=== PATIENT | male | born 1980 | race Caucasian/White ===

== ENCOUNTER 2020-01-13 12:40 | Emergency (ER) | payer MEDICAID ==
[~2020-01-13] VITALS: Ht 162.6 cm; Wt 71.2 kg
[2020-01-13 12:40] VITALS: BP 152/98
--- NOTE | 2020-01-13 12:40 | NUR ---
PT INITIAL SCREENING PERFORMED BY [employer]UR[facility]. PATIENT PROVIDED WITH A MASK AND PLACED IN TENT. COVID-19 SCREENING PERFORMED BY MYSELF. PT AMBULATED THROUGH AMBULANCE ENTRANCE PLACED IN BED 3.
--- NOTE | 2020-01-13 12:46 | NUR ---
PATIENT AMBULATED TO BED 3
--- NOTE | 2020-01-13 13:00 | NUR ---
39 Y/O M C/C NASAL CONGESTION/COUGH X 1 DAY. PER PT NO OTC RX TAKEN. PER PT HAS BEEN COMPLIANT BY STAYING HOME ; HAS DONE ONLY ESSENTIAL TRAVELING ; HAS HAD NO VISITORS AT HOME. PT NKA. NO HX. NO RX. NO N/V/D. SIDE RAIL X1. NO RESPIRATORY DISTRESS NOTED.
--- NOTE | 2020-01-13 13:00 | NUR ---
COVID-19 PRECAUTIONS TAKEN PER HOSPITAL POLICY
[2020-01-13 13:02] VITALS: BP 152/98
== END 2020-01-13 13:02 | disposition home or self-care (01) ==
LOC: EEVIPCON 12:40 → MED 12:40
DX: J06.9 Acute upper respiratory infection, unspecified (principal); J02.9 Acute pharyngitis, unspecified
CPT/HCPCS: 99283

== ENCOUNTER 2020-07-19 01:45 | Emergency (ER) | payer MEDICAID ==
[~2020-07-19] VITALS: Ht 165.1 cm; Wt 77.1 kg
[2020-07-19 01:57] VITALS: BP 151/95
--- NOTE | 2020-07-19 02:02 | NUR ---
PT AMBULATED TO BED #8
--- NOTE | 2020-07-19 02:20 | NUR ---
40 YO M BIB SELF FOR C/C OF 7/10 BILATERAL EAR/HEAD PAIN AND NASAL CONGESTION X2 DAYS. PT DENIES FEVER, COUGH, SOB, AND TRAVEL. LUNG SOUNDS CLEAR THROUGHOUT. S1S2 HEARD. PT TOOK ACETAMINOPHEN PRIOR TO ARRIVAL. BED LOCKED AND IN LOWEST POSITION. SIDE RAILS X1. MED HX: DENIES DENIES RX NKA
--- NOTE | 2020-07-19 02:25 | NUR ---
PLACED PT ON PULSE OX AND HAD HIM WALK IN PLACE PER REQUEST OF JOSE ANTONIO TAMAYO. PT REMAINED AT 98% O2 SATURATION.
--- NOTE | 2020-07-19 02:26 | NUR ---
JORGE SWAB COLLECTED AND SENT TO LAB
[2020-07-19 03:12] VITALS: BP 151/95
--- NOTE | 2020-07-19 03:12 | NUR ---
Patient discharged with v/s stable. Written and verbal after care instructions given and explained. Patient alert, oriented and verbalized understanding of instructions. Ambulatory with steady gait. All questions addressed prior to discharge. ID band removed. Patient advised to follow up with PMD. Rx of AUGMENTIN, RHINOCORT AQUA NASAL SPRAY given. Patient educated on indication of medication including possible reaction and side effects. Opportunity to ask questions provided and answered.
== END 2020-07-19 03:12 | disposition home or self-care (01) ==
LOC: MED 01:45
DX: B34.9 Viral infection, unspecified (principal); J30.9 Allergic rhinitis, unspecified; Z20.828 Contact with and (suspected) exposure to other viral communicable diseases
CPT/HCPCS: 99283

== ENCOUNTER 2021-08-24 02:02 | Emergency (ER) | payer MEDICAID ==
[~2021-08-24] VITALS: Ht 162.6 cm; Wt 76.2 kg
[2021-08-24 02:10] VITALS: BP 178/120
--- NOTE | 2021-08-24 02:16 | NUR ---
patient to bed 12 with urine cup for collection
--- NOTE | 2021-08-24 02:30 | NUR ---
Received pt in bed 12 with c/o abd pain that started today. 07/21 pain. denies taking any pain medication. +n/v. abd pain centered in the right lower abdominal area. pmh: denies nka
[2021-08-24] MEDS ORDERED: ONDANSETRON 4 MG/2 ML VIAL IVP ONE (02:40)
[2021-08-24] MEDS ORDERED: KETOROLAC 30 MG/ML VIAL IVP ONE (02:40)
[2021-08-24] MEDS ORDERED: NACL 0.9% 1,000 ML IV SCH (02:40)
--- NOTE | 2021-08-24 03:00 | NUR ---
TO CT VIA W/C
[2021-08-24 03:06] LABS: BASOPHILS % (AUTO) 0.5 % (0.0-2.0); EOSINOPHILS # (AUTO) 0.3 K/uL (0-0.4); EOSINOPHILS % (AUTO) 4.4 % (0.0-4.0); HEMATOCRIT 44.4 % (36-52); HEMOGLOBIN 15.2 g/dL (12.0-18.0); LYMPHOCYTES # (AUTO) 2.1 K/uL (2.0-11.5); LYMPHOCYTES % (AUTO) 27.6 % (20.5-51.1); MEAN CORPUSCULAR HEMOGLOBIN 30 pg (27-31); MEAN CORPUSCULAR HGB CONC 34 g/dL (33-37); MEAN CORPUSCULAR VOLUME 87.6 fL (80-94); MONOCYTES # (AUTO) 0.5 K/uL (0.8-1.0); MONOCYTES % (AUTO) 6.7 % (1.7-9.3); NEUTROPHILS # (AUTO) 4.7 K/uL (1.8-7.7); NEUTROPHILS % (AUTO) 60.8 % (42.2-75.2); PLATELET COUNT (AUTO) 171 K/uL (140-450); RED BLOOD CELL COUNT(AUTO) 5.06 MIL/uL (4.20-6.10); RED CELL DISTRIBUTION WIDTH 13.4 % (11.6-13.7); WHITE BLOOD COUNT (AUTO) 7.7 K/uL (4.8-10.8)
--- NOTE | 2021-08-24 03:10 | NUR ---
RETURNED FROM CT
[2021-08-24 03:12] LABS: ANION GAP 11.1 (8-16); CARBON DIOXIDE 29.2 mmol/L (21-32); CREATININE 0.9 mg/dL (0.6-1.3); POTASSIUM 3.3 mmol/L (3.5-5.1); TOTAL BILIRUBIN 0.5 mg/dL (0.0-1.0)
[2021-08-24 03:28] LABS: APPEARANCE,URINE CLEAR (CLEAR); BILIRUBIN,URINE NEGATIVE (NEGATIVE); BLOOD, URINE 3+ (NEGATIVE); COLOR,URINE YELLOW (YELLOW); LEUKOCYTE ESTERASE ,URINE NEGATIVE (NEGATIVE); NITRITE, URINE NEGATIVE (NEGATIVE); UGLUCOSE NEGATIVE (NEGATIVE)
[2021-08-24 03:40] LABS: RBC,URINE >100 /HPF (0-5); WBC,URINE 0-5 /HPF (0-5)
--- NOTE | 2021-08-24 03:45 | NUR ---
RESTING COMFORTABLY. DENIES PAIN AT THIS TIME
[2021-08-24] MEDS ORDERED: ONDA-188 SL (06:23)
[2021-08-24] MEDS ORDERED: KETO10TA2 PO (06:23)
[2021-08-24] MEDS ORDERED: POTASSIUM CHLORIDE 10 MEQ TABER PO ONE (06:25)
[2021-08-24 06:30] VITALS: BP 134/95
== END 2021-08-24 06:30 | disposition home or self-care (01) ==
LOC: MED 02:02
DX: N20.1 Calculus of ureter (principal); E87.6 Hypokalemia; R11.2 Nausea with vomiting, unspecified
CPT/HCPCS: 36415; 74176; 80053; 81001; 83690; 85025; 96361; 96374; 96375; 99284; J1885; J2405; J7030

== ENCOUNTER 2023-07-28 18:04 | Emergency (ER) | payer MEDICAID ==
[~2023-07-28] VITALS: Ht 162.6 cm; Wt 74.4 kg
[~2023-07-28 18:04] MED LIST: KETO10TA2 PO; ONDA-188 SL
[2023-07-28 18:16] VITALS: BP 148/90; PULSE 91; RESP 18; TEMP 97.7; O2SAT 99
[2023-07-28] MEDS ORDERED: LIDOCAINE MPF 1% 10 MG/ML VIAL INJ ONE (19:30)
[2023-07-28 20:00] VITALS: O2SAT 99
== END 2023-07-28 21:45 | disposition home or self-care (01) ==
LOC: MED 18:04
DX: S51.012A Laceration without foreign body of left elbow, initial encounter (principal); X58.XXXA Exposure to other specified factors, initial encounter; Y93.89 Activity, other specified; Y92.89 Other specified places as the place of occurrence of the external cause; Y99.8 Other external cause status
CPT/HCPCS: 12001; 73080; 90471; 90715; 99283; J2001; Q0092

== ENCOUNTER 2024-05-29 07:58 | Inpatient (IN) | payer MEDICAID, OTHER ==
[~2024-05-29] VITALS: Ht 163.2 cm; Wt 76.2 kg
[2024-05-29 08:08] VITALS: BP 155/115; PULSE 72; RESP 16; TEMP 97.4; O2SAT 98
[2024-05-29] MEDS ORDERED: GLUCAGON 1 MG VIAL ONE (10:26)
[2024-05-29] MEDS ORDERED: FAMOTIDINE 20 MG/2 ML VIAL ONE (10:27)
[2024-05-29] MEDS: ONDANSETRON 4 MG/2 ML VIAL IVP ONE (10:32)
[2024-05-29] MEDS: FAMOTIDINE 20 MG/2 ML VIAL IVP ONE (10:32)
[2024-05-29] MEDS: GLUCAGON 1 MG VIAL IVP ONE (10:32)
[2024-05-29] MEDS: ALUMINUM HYD/MAG/SIMETHICONE 30 ML UDC PO ONE (10:36)
[2024-05-29 10:49] LABS: BASOPHILS % (AUTO) 0.6 % (0.0-2.0); EOSINOPHILS # (AUTO) 0.4 K/uL (0-0.4); EOSINOPHILS % (AUTO) 5.5 % (0.0-4.0); HEMATOCRIT 47.5 % (36-52); HEMOGLOBIN 16.6 g/dL (12.0-18.0); LYMPHOCYTES # (AUTO) 1.5 K/uL (2.0-11.5); LYMPHOCYTES % (AUTO) 22.3 % (20.5-51.1); MEAN CORPUSCULAR HEMOGLOBIN 31 pg (27-31); MEAN CORPUSCULAR HGB CONC 35 g/dL (33-37); MEAN CORPUSCULAR VOLUME 87.6 fL (80-94); MONOCYTES # (AUTO) 0.4 K/uL (0.8-1.0); MONOCYTES % (AUTO) 6.2 % (1.7-9.3); NEUTROPHILS # (AUTO) 4.5 K/uL (1.8-7.7); NEUTROPHILS % (AUTO) 65.4 % (42.2-75.2); PLATELET COUNT (AUTO) 158 K/uL (140-450); RED BLOOD CELL COUNT(AUTO) 5.42 MIL/uL (4.20-6.10); RED CELL DISTRIBUTION WIDTH 13.5 % (11.6-13.7); WHITE BLOOD COUNT (AUTO) 6.9 K/uL (4.8-10.8)
[2024-05-29 11:04] LABS: ALBUMIN 4.3 g/dL (3.4-5.0); ANION GAP 12.8 (8-16); CALCIUM 9.1 mg/dL (8.5-10.1); CREATININE 0.9 mg/dL (0.6-1.3); POTASSIUM 3.8 mmol/L (3.5-5.1); TOTAL BILIRUBIN 0.5 mg/dL (0.0-1.0); TOTAL PROTEIN, SERUM 8.7 g/dL (6.4-8.2)
[2024-05-29] MEDS ORDERED: LORazepam 1 MG TAB PO PRN (15:35)
[2024-05-29] MEDS ORDERED: ONDANSETRON 4 MG/2 ML VIAL IVP PRN (15:35)
[2024-05-29] MEDS ORDERED: ZOLPIDEM 5 MG TAB PO PRN (15:35)
[2024-05-29] MEDS ORDERED: ACETAMINOPHEN 325 MG TAB PO PRN (15:35)
[2024-05-29] MEDS ORDERED: HYDROcodone/APAP 5/325 MG 1 TAB TAB PO PRN (15:35)
[2024-05-29] MEDS: DEXT 5% / NACL 0.45% 1,000 ML IV SCH (15:48)
[2024-05-29] MEDS ORDERED: fentaNYL citrate 0.05 MG/ML VIAL ONE (16:15)
[2024-05-29] MEDS ORDERED: diphenhydrAMINE 50 MG/ML VIAL ONE (16:15)
[2024-05-29] MEDS ORDERED: MIDAZOLAM 5 MG/5 ML VIAL ONE (16:15)
[2024-05-29 16:31] VITALS: O2SAT 99
[2024-05-29] MEDS: MIDAZOLAM 5 MG/5 ML VIAL IV ONE (16:32)
[2024-05-29] MEDS: fentaNYL citrate 0.05 MG/ML VIAL IVP ONE (16:33)
[2024-05-29] MEDS ORDERED: OMEP-277 PO (17:10)
[2024-05-29 17:34] VITALS: BP 126/93; PULSE 72; RESP 18; TEMP 97.1
[2024-05-30] MEDS ORDERED: DOCUSATE SODIUM 100 MG GELCAP PO SCH (09:00)
== END 2024-05-29 18:22 | disposition home or self-care (01) | DRG 254 ==
LOC: MED 07:58 → MMU 15:32 → MTU 15:54
PROVIDERS: ADMIT Hospitalist; ATTEND Hospitalist
PROC: 0DB68ZX Excision of Stomach, Via Natural or Artificial Opening Endoscopic, Diagnostic (ICD-10-PCS; 2024-05-29)
PROC: 0DB18ZX Excision of Upper Esophagus, Via Natural or Artificial Opening Endoscopic, Diagnostic (ICD-10-PCS; 2024-05-29)
PROC: 0DB28ZX Excision of Middle Esophagus, Via Natural or Artificial Opening Endoscopic, Diagnostic (ICD-10-PCS; 2024-05-29)
PROC: 0DB48ZX Excision of Esophagogastric Junction, Via Natural or Artificial Opening Endoscopic, Diagnostic (ICD-10-PCS; principal; 2024-05-29 15:15)
DX: T18.128A Food in esophagus causing other injury, initial encounter (principal); I10 Essential (primary) hypertension; K20.0 Eosinophilic esophagitis; W44.F3XA Food entering into or through a natural orifice, initial encounter; Z79.899 Other long term (current) drug therapy; Z88.8 Allergy status to other drugs, medicaments and biological substances; Y93.89 Activity, other specified; Y92.89 Other specified places as the place of occurrence of the external cause; Y99.8 Other external cause status
CPT/HCPCS: 36415; 71250; 80053; 83690; 85025; 96374; 96375; 99285; J1200; J1610; J2250; J2405; J3010; J3490; J7030